=== PATIENT | female | born 1980 | race Two or more races ===

== ENCOUNTER 2019-08-17 03:47 | Emergency (ER) | payer OTHER ==
[~2019-08-17] VITALS: Ht 167.6 cm; Wt 72.6 kg
[2019-08-17 03:47] VITALS: BP 128/73
== END 2019-08-17 06:57 | disposition home or self-care (01) ==
LOC: EDBD 03:52 → ER 03:52
DX: F10.129 Alcohol abuse with intoxication, unspecified (principal); Y90.9 Presence of alcohol in blood, level not specified